=== PATIENT | male | born 1950 | race Caucasian/White ===

== ENCOUNTER → 2017-05-13 | Outpatient (REF) | payer OTHER ==
[2017-05-13 18:51] LABS: ADD MANUAL DIFFER YES; DIFF SLIDE NUMBER 294; MEAN CORPUSCULAR HEMOGLOBIN 33.7 pg (27.0-33.0); MEAN CORPUSCULAR HGB CONC 35.1 g/dl (32.0-36.5); MEAN CORPUSCULAR VOLUME 95.9 fl (80.0-96.0); PLATELET COUNT, AUTOMATED 244 k/mm3 (150-450); RED CELL DISTRIBUTION WIDTH 12.9 % (11.5-14.5); WHITE BLOOD COUNT 7.6 K/mm3 (4.0-10.0)
[2017-05-13 21:10] LABS: BASOPHILS 1 % (0-4); BURR CELLS 1+; EOSINOPHILS 3 % (0-5); PLATELET CLUMPS SMALL AMT
[2017-05-13 21:11] LABS: SCHISTOCYTES 1+
[2017-05-17 00:06] LABS: Lyme Disease IgG Ab 18 kDa Ban Absent (.); Lyme Disease IgG Ab 23 kDa Ban Absent (.); Lyme Disease IgG Ab 28 kDa Ban Absent (.); Lyme Disease IgG Ab 30 kDa Ban Present (.); Lyme Disease IgG Ab 39 kDa Ban Absent (.); Lyme Disease IgG Ab 41 kDa Ban Present (.); Lyme Disease IgG Ab 45 kDa Ban Absent (.); Lyme Disease IgG Ab 58 kDa Ban Absent (.); Lyme Disease IgG Ab 66 kDa Ban Absent (.); Lyme Disease IgG Ab 93 kDa Ban Absent (.); Lyme Disease IgG West Blot Int Negative (.); Lyme Disease IgG/IgM Antibodie <0.91 ISR (0.00-0.90); Lyme Disease IgM Ab 23 kDa Ban Present (.); Lyme Disease IgM Ab 39 kDa Ban Absent (.); Lyme Disease IgM Ab 41 kDa Ban Present (.); Lyme Disease IgM Ab Quantitati 2.15 index (0.00-0.79); Lyme Disease IgM West Blot Int Positive (.)
== END ==
LOC: M LAB REF 16:45
PROVIDERS: ATTEND Physician Assistant
DX: A26.0 Cutaneous erysipeloid (principal)

== ENCOUNTER → 2019-02-04 | Outpatient (CLI) | payer MEDICARE, OTHER ==
--- NOTE | 2019-02-05 10:19 | ECHO ---
DATE OF SERVICE: 02/04/2019 AGE: 68 REFERRING PROVIDER: Dr. Abdoulaye Pina REASON FOR ECHOCARDIOGRAM: Chest pain. 2D MEASUREMENTS: IVS: 1.0 cm LV: 5.6 cm LVPW: 1.0 cm LA: 3.8 cm Aorta: 3.2 cm IVC: 1.6 cm DOPPLER MEASUREMENTS: Peak velocity across the aortic valve: 1.2 m/s Peak velocity across the LVOT: 0.89 m/s Mitral E: 0.47 Mitral A: 0.68 with a ratio of 0.8 Maximum tricuspid valve velocity: 2.2 m/s 2D COMMENTS: 1. Borderline enlarged left ventricle with normal left ventricular wall thickness. Left ventricular systolic function appeared to be normal, estimated at 55-60%. There was mild global hypokinesis. 2. Normal left atrium. Normal right atrium and right ventricle. 3. The atrial septum appeared to be normal without evidence of defect or shunt. 4. Normal aortic root. 5. No pericardial effusion seen. 6. Minimally calcified aortic valve with normal leaflet excursion. Mildly calcified mitral annulus with normal anterior mitral valve leaflet motion. Normal tricuspid valve and pulmonic valve. The proximal pulmonary artery branches were not well visualized. 7. The inferior vena cava was normal in size, central venous pressure is most likely normal. Doppler, only trace tricuspid regurgitation detected. The calculated pulmonary artery systolic pressure was normal. Abnormal relaxation pattern was noted across the mitral valve leaflets as well as the mitral valve annulus consistent with features of grade 1 left ventricular diastolic dysfunction. IMPRESSION: 1. Normal global left ventricular systolic function with mild global hypokinesis and borderline enlarged left ventricle. There were some features of left ventricular diastolic dysfunction, impaired relaxation. 2. Trace tricuspid regurgitation with a normal calculated pulmonary artery systolic pressure. 3. Not mentioned above, this study was technically limited due to poor acoustic window.
== END ==
LOC: M CARPUL 11:27
PROVIDERS: ATTEND Internal Medicine Interventional Cardiology
DX: R07.89 Other chest pain (principal); R93.1 Abnormal findings on diagnostic imaging of heart and coronary circulation; I36.1 Nonrheumatic tricuspid (valve) insufficiency

== ENCOUNTER 2019-04-13 08:27 | Outpatient (RCR) | payer MEDICARE, OTHER ==
[2019-04-13] MEDS ORDERED: NITR0.4S14 SL (08:41)
[2019-04-13] MEDS ORDERED: LISI-1046 PO (08:41)
[2019-04-13] MEDS ORDERED: GLUC500T PO (08:41)
[2019-04-13] MEDS ORDERED: ASPI81TA85 PO (08:41)
[2019-04-13] MEDS ORDERED: METO1TAB87 PO (08:41)
[2019-04-13] MEDS ORDERED: LIPI80TA PO (08:41)
[2019-04-13] MEDS ORDERED: BRIL90TA PO (08:41)
--- NOTE | 2019-04-13 10:16 | CARECAPL ---
Assessment Account #s: Initial Assessment General Diagnoses: Stent (x5), NSTEMI Date of event: Jan 26, 2019 Physician: Abdoulaye Pina P Allergies: Coded Allergies: No Known Allergies (Verified , 04/24/03) Uncoded Allergies: N (Allergy, Unknown, 04/24/03) NKDA (Allergy, Unknown, 04/24/03) Date Entered Program: Apr 13, 2019 Risk strat for cardiac event: Moderate Exercise Date: Apr 13, 2019 Assessment: Initial Assessment Exercise Prescription Plan to build strength and endurance through a monitored exercise program and to educate about cardiac risk factors Modalities initiated: Treadmill (will add), Nustep (will add), Arm Aerometer (will add), Dumbells (will add), Recumbent Bike (will add) Frequency: 2-3 Duration (Minutes) 30-60 minutes total exercise a day. 8-12 work intervals in minutes. prn rest intervals in minutes. Functional Capacity Goal Sustained Metabolic Equivalent of a task (MET) goal of 3.5-4.5 for 15-20 minutes. Progression (METS) Increase by: 0.5 METS every: 2-3 sessions Angina with ex: No Target Heart Rate rest +35-40 betablocker therapy Resistance Training: Yes (will add) Hypertension: Yes Hypertension controlled with: Diet Resting 136/75 Meds see below Medications Scheduled Aspirin (Aspir 81), 1 TAB PO DAILY, (Reported) Atorvastatin Calcium (Lipitor), 80 MG PO QHS, (Reported) Lisinopril (Lisinopril), 2.5 MG PO DAILY, (Reported) Metformin HCl (Glucophage), 1 TAB PO BID, (Reported) Metoprolol Tartrate (Metoprolol Tartrate), 12.5 MG PO BID, (Reported) Nitroglycerin (Nitroglycerin), 0.4 MG SL ASDIRECTED, (Reported) Ticagrelor Base (Brilinta), 90 MG PO BID, (Reported) Target Goals Individual exercise Rx (1) BP 140/90 or 130/80 if DM or CKD (1) Aerobic active 30+min 5 days per week (1) Nutrition Date: Apr 13, 2019 Assessment: Initial Assessment Lipid- med/supplement lipitor Diabetes Diabetes: Yes (type II) HbA1c (%): 6.1 Diabetes medication Metformin Monitor Blood Sugar at home: Yes Frequency occasionally Weight Management Weight (lbs): 183.2 Height (inches): 66 Waist Circumference (Inches): 38 BMI: 29.5 Weight goal: 175 Special Diet: low salt, mediteranean diet, low-fat Alcohol: special Alcohol Amount: 1 Diet Access Tool: Rate your plate Score: 47 Intervention Observer Helper Consult: Yes Nurse/patient discussion: Yes (will discuss) Diet Class: No (will see during this program) Referral to Diabetes education: No Referral to lipid clinic: No Referral to weight mangement p: No Target goal LDL-C<100 if triglycerides are >200 Non-HDL-C should be <130 (1) LDL-C<70 for high risk patients (4) HbA1c<7% (1) BMI<25 Waist cir<40in M/<35in F (1) Education Date: Apr 13, 2019 Assessment: Initial Assessment Learning Barriers: ready Knowledge Test Score: 10 Family Support: Yes Tobacco use: No Quit: never smoked Intervention Referral to smoking cessation: No Individual education and couns: No Tobacco Adjunct: No Education class schedule given: Yes Attended education classes: Yes Target Goals Complete cessation of tobacco use (1). Psychosocial Date: Apr 13, 2019 Assessment: Initial Assessment Psych Test (Initial/Discharge) Tool Used: CESD Score: 3 Intervention Physician Consult: No Physician Referral: No Stress Management Class: Yes Uses Stress Management Skills: Yes Target Goal Assess presence or absence of depression using a valid screening tool (1). Maximize coping skills (2). Positive support system (2). Patient/Program Goal Preventative Medication: Yes Aspirin, Yes Beta blockade, Yes Statin/OTR lipid Lowering Fall Risk Assess: No Provider Assessment Provider Assessment: Proceed with rehab Marina Moeller RN Apr 13, 2019 10:15
== END 2019-04-17 ==
LOC: M CR 08:27
PROVIDERS: ATTEND Internal Medicine Interventional Cardiology
DX: Z98.61 Coronary angioplasty status (principal)

== ENCOUNTER → 2019-05-18 | Outpatient (RCR) | payer MEDICARE, OTHER ==
--- NOTE | 2019-05-04 14:32 | CARECAPL ---
Assessment Account #s: Re-Assessment I General Diagnoses: Stent, NSTEMI Date of event: Jan 26, 2019 Physician: Abdoulaye Pina P Allergies: Coded Allergies: No Known Allergies (Verified , 04/24/03) Uncoded Allergies: N (Allergy, Unknown, 04/24/03) NKDA (Allergy, Unknown, 04/24/03) Date Entered Program: Apr 13, 2019 Risk strat for cardiac event: Moderate Exercise Date: May 04, 2019 Assessment: Re-Assessment I Exercise Prescription Plan TO EDUCATE AND BUILD ENDURANCE THROUGH MONITORED EXERCISE PROGRAM Modalities initiated: Treadmill (METS=3.89/RPE=2), Nustep (METS=7.2/RPE=3.5), Arm Aerometer (METS=3.6/RPE=3), Dumbells (4#/RPE=3), Recumbent Bike (METS=4.6/RPE=2) Frequency: 3 Duration (Minutes) 30-60 minutes total exercise a day. 12-15 work intervals in minutes. 5 MIN NEEDED rest intervals in minutes. Functional Capacity Goal Sustained Metabolic Equivalent of a task (MET) goal of 4.0-5.0 for 15-20 minutes. Intensity: 3-Moderate Progression (METS) Increase by: 0.5 METS every: 5 sessions TOLERATED Angina with ex: No Target Heart Rate REST +35-40 Resistance Training: Yes Weight (pounds): 4 Reps: 12-15 Hypertension: Yes Hypertension controlled with: Diet Resting 130/88 Peak Exercise BP 140/90 Medications Scheduled Aspirin (Aspir 81), 1 TAB PO DAILY, (Reported) Atorvastatin Calcium (Lipitor), 80 MG PO QHS, (Reported) Lisinopril (Lisinopril), 2.5 MG PO DAILY, (Reported) Metformin HCl (Glucophage), 1 TAB PO BID, (Reported) Metoprolol Tartrate (Metoprolol Tartrate), 12.5 MG PO BID, (Reported) Nitroglycerin (Nitroglycerin), 0.4 MG SL ASDIRECTED, (Reported) Ticagrelor Base (Brilinta), 90 MG PO BID, (Reported) Current BP 114/84 Med Change: No Intervention Resistance Training: Yes Education: Self pulse (INSTRUCTED ON TAKING HIS OWN PULSE), Ex safety (EDUCATED ON WAYS TO EXERCISE SAFELY SUCH STRETCHING, WARM UP AND COOL DOWN), S/S to report (INSTRUCTED TO REPORT SOB/CHEST PAIN), Low NA diet (BENEFITS OF LOW SODIUM DIET REVIEWED), BP medication (REVIEWED MEDICATIONS), RPE Scale (REVIEWED OUR 1-5 SCALE FOR RATING EACH PIECE OF EQUIPMENT), Equipment orientation (ORIENTED TO EACH PIECE OF EQUIPMENT IT IS ADDED TO EXERCISE REGIMIN), warm up/cool down (EDUCATED ON IMPORTANCE OF WARM UP/STRETCHING/COOL DOWN), Understand BP, Physical Active (EDUCATED ON IMPORTANCE CONTINUED EXERCISE FOLLOWING CARDIAC REHAB PROGRAM) Education Goals Met: No Target Goals Individual exercise Rx (1) BP 140/90 or 130/80 if DM or CKD (1) Aerobic active 30+min 5 days per week (1) Nutrition Date: May 04, 2019 Assessment: Re-Assessment I Lipid- med/supplement LIPITOR Med Change: No Diabetes Diabetes: Yes Monitor Blood Sugar at home: Yes Medication Change: No Blood sugar in range: Yes Weight Management Weight (lbs): 182 Special Diet: low salt, mediteranean diet, low-fat Alcohol: special Alcohol Amount: 1 Current Weight (pounds): 182 Intervention Manager Mass Consult: No Nurse/patient discussion: Yes Dietary Goals TO MAKE HEART HEALTHY CHOICES, LOW SALT AND FAT, SMALLER PORTIONS Diet Class: Yes (WILL SEE ROD MACHINE OPERATOR WHILE IN CARDIAC REHAB PROGRAM) Referral to Diabetes education: No Referral to lipid clinic: No Referral to weight mangement p: No Education S&S hypo/hyper glycemia, Relate Diabetes in CAD, Eating Healthy Target goal LDL-C<100 if triglycerides are >200 Non-HDL-C should be <130 (1) LDL-C<70 for high risk patients (4) HbA1c<7% (1) BMI<25 Waist cir<40in M/<35in F (1) Education Date: May 04, 2019 Assessment: Re-Assessment I Learning Barriers: ready Family Support: Yes Tobacco use: No Tobacco Use Smokeless tobacco: No Intervention Referral to smoking cessation: No Individual education and couns: No Tobacco Adjunct: No Education class schedule given: No Attended education classes: No Education: CAD, Risk factors, med compliance, cardiac A&P, Angina S/S, Sexuality Target Goals Complete cessation of tobacco use (1). Psychosocial Date: May 04, 2019 Assessment: Re-Assessment I Intervention Physician Consult: No Physician Referral: No Med Change: No Stress Management Class: No Uses Stress Management Skills: Yes Education Education: Coping Techniques, S/S depression, Relaxation Techniques Target Goal Assess presence or absence of depression using a valid screening tool (1). Maximize coping skills (2). Positive support system (2). Patient/Program Goal Preventative Medication: Yes Aspirin, Yes Beta blockade, Yes Statin/OTR lipid Lowering Fall Risk Assess: Yes (NOT A FALL RISK) Provider Assessment Session Number: 6 Provider Assessment: Proceed with rehab Avinash Traore RN May 04, 2019 14:32
[~2019-05-18] MED LIST: ASPI81TA85 PO; BRIL90TA PO; GLUC500T PO; LIPI80TA PO; LISI-1046 PO; METO1TAB87 PO; NITR0.4S14 SL
== END ==
LOC: M CR 04-20 10:58
PROVIDERS: ATTEND Internal Medicine Interventional Cardiology
DX: Z98.61 Coronary angioplasty status (principal)

== ENCOUNTER 2019-05-30 13:07 | Outpatient (RCR) | payer MEDICARE, OTHER ==
--- NOTE | 2019-05-25 13:37 | CARECAPL ---
Assessment Account #s: Re-Assessment II General Diagnoses: Stent (5), NSTEMI Date of event: Jan 26, 2019 Physician: Abdoulaye Pina P Allergies: Coded Allergies: No Known Allergies (Verified , 04/24/03) Uncoded Allergies: N (Allergy, Unknown, 04/24/03) NKDA (Allergy, Unknown, 04/24/03) Date Entered Program: Apr 13, 2019 Risk strat for cardiac event: Moderate Exercise Date: May 25, 2019 Assessment: Re-Assessment II Exercise Prescription Modalities initiated: Treadmill (3.2/3.5 mts 5.21 rpe 2 15 minutes), Nustep (L6 mts 7.2 rpe 3 15 minutes), Arm Aerometer (3.0 mts 4.0 rpe 3.5 10 minutes), Dumbells, Recumbent Bike (R6 mts 9.7 rpe 3 15 minutes) Duration (Minutes) minutes total exercise a day. work intervals in minutes. rest intervals in minutes. Functional Capacity Goal Sustained Metabolic Equivalent of a task (MET) goal of 7.0-8.0 for 15-20 minutes. Progression (METS) Increase by: METS every: sessions Angina with ex: No Resistance Training: Yes Weight (pounds): 5 Reps: 8-12 Medications Scheduled Aspirin (Aspir 81), 1 TAB PO DAILY, (Reported) Atorvastatin Calcium (Lipitor), 80 MG PO QHS, (Reported) Lisinopril (Lisinopril), 2.5 MG PO DAILY, (Reported) Metformin HCl (Glucophage), 1 TAB PO BID, (Reported) Metoprolol Tartrate (Metoprolol Tartrate), 12.5 MG PO BID, (Reported) Nitroglycerin (Nitroglycerin), 0.4 MG SL ASDIRECTED, (Reported) Ticagrelor Base (Brilinta), 90 MG PO BID, (Reported) Current BP 116/84 Med Change: No Intervention Home exercise: Type (walking, join local gym, hand weights), Frequency (5-7 karmen es per week), Duration (30-60 minutes) Resistance Training: Yes (see prior ITP) Education Goals Met: Yes Target Goals Individual exercise Rx (1) BP 140/90 or 130/80 if DM or CKD (1) Aerobic active 30+min 5 days per week (1) Nutrition Date: May 25, 2019 Assessment: Re-Assessment II Diabetes Diabetes: Yes Diabetes medication glucophage Referral to Diabetes education: No (pt is monitoring glucose ranges well) Education Goals Met: No (progressing toward goals) Target goal LDL-C<100 if triglycerides are >200 Non-HDL-C should be <130 (1) LDL-C<70 for high risk patients (4) HbA1c<7% (1) BMI<25 Waist cir<40in M/<35in F (1) Education Date: May 25, 2019 Assessment: Re-Assessment II Intervention Attended education classes: Yes Education: CAD (risk factors and what to report), Risk factors, med compliance (importance of taking medications) Education Goals Met: No (progressing toward goals) Target Goals Complete cessation of tobacco use (1). Psychosocial Date: May 25, 2019 Assessment: Re-Assessment II Stress Management Class: Yes Uses Stress Management Skills: Yes Education Education: Coping Techniques (doing things you like.), S/S depression (sadness, low motivation. crying spells, helplessness), Relaxation Techniques (deep breathing, soft music) Education Goals Met: No (progressing toward goals) Target Goal Assess presence or absence of depression using a valid screening tool (1). Maximize coping skills (2). Positive support system (2). Provider Assessment Session Number: 11 Provider Assessment: No changes Marina Moeller RN May 25, 2019 13:37
== END 2019-06-18 ==
LOC: M CR 13:07
PROVIDERS: ATTEND Internal Medicine Interventional Cardiology
DX: Z98.61 Coronary angioplasty status (principal)

== ENCOUNTER 2023-04-01 07:39 | Day surgery (SDC) | payer MEDICARE, OTHER ==
[~2023-04-01] VITALS: Ht 167.6 cm; Wt 81.6 kg
[~2023-04-01 07:39] MED LIST changes: +ASPI81TA26 PO; -ASPI81TA85 PO; +ASPI81TA86 PO; +B-122500 PO; +EZET10TA21 PO; +GALZ50CA PO; +LEVO50TA5 PO; -LISI-1046 PO; +LISI2.5T9 PO; +METF500T13 PO; +VITA100054 PO
[2023-04-01] MEDS: NS 1,000 ML IV ONE (07:55)
[2023-04-01] MEDS ORDERED: propofoL 200 MG/20 ML VIAL As Ordered ONE (08:16)
[2023-04-01] MEDS ORDERED: LIDOCAINE 2% 100MG/5ML SDV (FOR ANES.) As Ordered ONE (08:21)
[2023-04-01 09:04] VITALS: TEMP 96.6
[2023-04-01 09:27] VITALS: BP 118/56; O2SAT 98
== END 2023-04-01 09:28 | disposition home or self-care (01) ==
LOC: M OPP 07:39
PROVIDERS: ATTEND Internal Medicine Gastroenterology
DX: K63.5 Polyp of colon (principal); K64.0 First degree hemorrhoids; K22.89 Other specified disease of esophagus; K21.00 Gastro-esophageal reflux disease with esophagitis, without bleeding; K44.9 Diaphragmatic hernia without obstruction or gangrene; K31.89 Other diseases of stomach and duodenum; R12 Heartburn

== ENCOUNTER 2023-12-29 06:25 | Day surgery (SDC) | payer MEDICARE, OTHER ==
[~2023-12-29] VITALS: Ht 167.6 cm; Wt 86.7 kg
[~2023-12-29 06:25] MED LIST changes: +LEVO75TA4 PO; +OMEP40CA5 PO; +SUCR1TAB56 PO
[2023-12-29] MEDS: PHENYLEPHRINE 2.5% OPHTH SOL 2ML OD SCH (06:56)
[2023-12-29] MEDS: PROPARACAINE 0.5% OPHTH SOL 15ML OD ONE (06:56)
[2023-12-29] MEDS: TROPICAMIDE 1% OPHTH SOLN 15ML OD SCH (06:57)
[2023-12-29] MEDS: OFLOXACIN 0.3 % (OCUFLOX) OPTH SOL 5ML OD SCH (06:57)
[2023-12-29] MEDS: ATROPINE SULFATE 1% OPHTH SOLN 2ML BTL OD SCH (06:57)
[2023-12-29] MEDS ORDERED: MIDAZOLAM INJ 2MG/2ML VIAL As Ordered ONE (07:54)
[2023-12-29] MEDS ORDERED: fentaNYL 100 MCG/2 ML INJECTION As Ordered ONE (07:54)
[2023-12-29] MEDS: BSS IRR 500ML/OMIDRIA 4ML IRR BAG (OR ONLY) As Ordered ONE (07:55)
[2023-12-29] MEDS: LIDOCAINE 1% SDV 5ML VIAL As Ordered ONE (07:55)
[2023-12-29] MEDS: CEFUROXIME 1MG/0.1ML INTRACAMERAL INJ As Ordered ONE (07:55)
[2023-12-29 08:08] VITALS: BP 137/78; TEMP 98.2; O2SAT 96
== END 2023-12-29 08:26 | disposition home or self-care (01) ==
LOC: M SDC 06:25
PROVIDERS: ATTEND Ophthalmology
DX: E11.36 Type 2 diabetes mellitus with diabetic cataract (principal); H25.11 Age-related nuclear cataract, right eye; I10 Essential (primary) hypertension; E03.9 Hypothyroidism, unspecified; E78.00 Pure hypercholesterolemia, unspecified; I25.2 Old myocardial infarction; Z95.5 Presence of coronary angioplasty implant and graft; Z79.82 Long term (current) use of aspirin; Z79.899 Other long term (current) drug therapy; Z79.84 Long term (current) use of oral hypoglycemic drugs; K21.9 Gastro-esophageal reflux disease without esophagitis
CPT/HCPCS: 66984; J0697; J1097; J2250; J3010; V2632

== ENCOUNTER 2024-02-29 06:02 | Day surgery (SDC) | payer MEDICARE, OTHER ==
[~2024-02-29] VITALS: Ht 167.6 cm; Wt 84.2 kg
[2024-02-29] MEDS: ATROPINE SULFATE 1% OPHTH SOLN 2ML BTL OS SCH (06:43)
[2024-02-29] MEDS: FLURBIPROFEN 0.03% OPHTH SOLN 2.5 ML OS SCH (06:43)
[2024-02-29] MEDS: TETRACAINE 0.5% OPHTH SOLN 4ML OS SCH (06:43)
[2024-02-29] MEDS: PHENYLEPHRINE 2.5% OPHTH SOL 2ML OS SCH (06:43)
[2024-02-29] MEDS ORDERED: LR 1,000 ML IV SCH (07:00)
[2024-02-29] MEDS ORDERED: MIDAZOLAM INJ 2MG/2ML VIAL As Ordered ONE (07:08)
[2024-02-29] MEDS ORDERED: fentaNYL 100 MCG/2 ML INJECTION As Ordered ONE (07:08)
[2024-02-29] MEDS: LIDOCAINE 1% SDV 5ML VIAL As Ordered ONE (07:30)
[2024-02-29] MEDS: CEFUROXIME 1MG/0.1ML INTRACAMERAL INJ As Ordered ONE (07:40)
[2024-02-29 07:57] VITALS: BP 140/68; TEMP 97.2; O2SAT 96
== END 2024-02-29 08:14 | disposition home or self-care (01) ==
LOC: M SDC 06:02
PROVIDERS: ATTEND Ophthalmology
DX: H25.12 Age-related nuclear cataract, left eye (principal); I25.2 Old myocardial infarction; I10 Essential (primary) hypertension; Z98.61 Coronary angioplasty status; E11.9 Type 2 diabetes mellitus without complications; E03.9 Hypothyroidism, unspecified; Z79.82 Long term (current) use of aspirin; Z79.84 Long term (current) use of oral hypoglycemic drugs; Z79.899 Other long term (current) drug therapy; K21.9 Gastro-esophageal reflux disease without esophagitis
CPT/HCPCS: 66984; J0697; J2250; J3010; V2632